=== PATIENT | female | born 1975 | race Caucasian/White ===

== ENCOUNTER 2022-09-20 12:48 | Emergency (ER) | payer BC, SELFPAY ==
[2022-09-20 12:52] VITALS: BP 176/96; PULSE 78; RESP 18; TEMP 36.7; O2SAT 100
[2022-09-20 16:32] VITALS: BP 155/99; PULSE 75; RESP 18; O2SAT 99
--- NOTE | 2022-09-20 18:43 | PC.NURSE ---
no answer at triage
--- NOTE | 2022-09-20 21:05 | PC.NURSE ---
Patient called to place into exam room without response. Assumed to have left the ER without being seen by a provider after triage.
== END 2022-09-20 21:12 | disposition left against medical advice (07) ==
PROVIDERS: PCP Internal Medicine
DX: R60.0 Localized edema (principal)
CPT/HCPCS: 99199

== ENCOUNTER 2023-11-30 20:52 | Emergency (ER) | payer OTHER, SELFPAY ==
[2023-11-30 20:55] VITALS: BP 181/80; PULSE 81; RESP 20; TEMP 35.9; O2SAT 100
--- NOTE | 2023-11-30 21:34 | ED.GENADULT ---
HPI - General Adult General Chief complaint: Extremity Injury, Lower Stated complaint: leg pain Time Seen by Provider: 11/30/23 20:54 Source: patient Mode of arrival: ambulatory Limitations: no limitations History of Present Illness HPI narrative: this is a 48-year-old female who presents to the ED with chief complaint of right leg pain x2 days. Patient reports that she has been On her feet all day at work and feels that the swelling is likely due to that. She does report swelling to both legs is chronic and seems unchanged. She states that her right calf, lateral knee has been hurting more, worse with specific movements. She also reports it is worse with weight-bearing. She feels it is because she is working between 60-70 hours a week right now. Denies any redness or warmth to the lower extremity. Denies numbness, weakness, fevers, chills, nausea, vomiting. No history of blood clot. Related Data Allergies Allergy/AdvReac Type Severity Reaction Status Date / Time No Known Allergies Allergy Unknown Verified 11/30/23 20:58 Exam Narrative: GENERAL: Well-appearing, well-nourished, and in no acute distress. HEAD: Normocephalic, atraumatic. EYES: PERRLA and EOMI. ENT: Nares clear, no rhinorrhea or epistaxis. Mucous membranes moist. Oropharynx without tonsillar hypertrophy exudate or other lesions. NECK: Supple. No adenopathy or masses. CHEST: No respiratory distress. Clear to auscultation. No wheezes rales or rhonchi HEART: Regular rate and rhythm. No murmur heard. Normal peripheral pulses. ABDOMEN: Soft, nontender, nondistended, normal active bowel sounds. MSK: Normal range of motion. Mild bilateral lower extremity swelling that is equal. No unilateral calf swelling redness or warmth. Mild tenderness along the right lateral knee and insertion of the hamstring /origin of the calf muscles. SKIN: Warm, dry, no rash. NEURO: Alert and oriented x3. No focal deficits. PSYCH: Normal mood and affect. Course Vital Signs Vital signs: Vital Signs Temperature 96.7 F L 11/30/23 20:55 Pulse Rate 81 11/30/23 20:55 Respiratory Rate 20 11/30/23 20:55 Blood Pressure 181/80 H 11/30/23 20:55 Pulse Oximetry 100 11/30/23 20:55 Oxygen Delivery Room Air 11/30/23 20:55 Temperature 96.7 F L 11/30/23 20:55 Pulse Rate 81 11/30/23 20:55 Respiratory Rate 20 11/30/23 20:55 Blood Pressure 181/80 H 11/30/23 20:55 Pulse Oximetry 100 11/30/23 20:55 Oxygen Delivery Room Air 11/30/23 20:55 Medical Decision Making MDM Narrative Medical decision making narrative: This is a 48-year-old female who presents to the ED with chief complaint of right lower leg pain for the past few days. Vitals show elevated blood pressure otherwise normal. Exam shows consistency with musculoskeletal strain. Low likelihood of DVT based on exam. Wells score -2. We discussed that the likelihood of DVT is very low with this score. No unilateral redness, warmth to indicate DVT on exam. offered ultrasound Doppler for definitive rule out but patient feels comfortable going home at this point and will return if anything worsens. Rx for naproxen 500 b.i.d. given. Patient will be discharged stable condition with return precautions given. she will f/u with PCP Balta' Criteria for DVT from [email or web address] on 12/01/2023 All calculations should be rechecked by clinician prior to use RESULT SUMMARY: -2 points Low risk group for DVT. ?Unlikely? according to Wells? DVT studies. INPUTS: Active cancer ?> 0 = No Bedridden recently >3 days or major surgery within 12 weeks ?> 0 = No Calf swelling >3 cm compared to the other leg ?> 0 = No Collateral (nonvaricose) superficial veins present ?> 0 = No Entire leg swollen ?> 0 = No Localized tenderness along the deep venous system ?> 0 = No Pitting edema, confined to symptomatic leg ?> 0 = No Paralysis, paresis, or recent plaster immobilization of the lower extremity ?> 0 = No Pr
== END 2023-11-30 23:05 | disposition home or self-care (01) ==
PROVIDERS: Emergency Provider Physician Assistant; PCP Internal Medicine
DX: R22.43 Localized swelling, mass and lump, lower limb, bilateral (principal); S86.919A Strain of unspecified muscle(s) and tendon(s) at lower leg level, unspecified leg, initial encounter
CPT/HCPCS: 99283

== ENCOUNTER 2023-12-05 12:59 | Emergency (ER) | payer OTHER, SELFPAY ==
--- NOTE | ~2023-12-05 | XR_ITS ---
XR knee RT 3V Ordering provider: Amanda Wan MD History: . LATERAL SIDE KNE PAIN X 1 WEEK . Comparison: None. FINDINGS: BONES: No acute fracture or dislocation. JOINT SPACES: Normal. SOFT TISSUES: Normal. IMPRESSION: No acute osseous abnormality right knee. Reviewed, dictated and finalized at location A.
--- NOTE | ~2023-12-05 | US_ITS ---
RIGHT LOWER EXTREMITY VENOUS ULTRASOUND Ordering provider: Amanda Wan MD History: . calf pain, swelling . Comparison: None. FINDINGS: --COMMON FEMORAL: Patent and free of thrombus. Normal compressibility, phasic flow and augmentation. --PROXIMAL SUPERFICIAL FEMORAL: Patent and free of thrombus. Normal compressibility, phasic flow and augmentation. --DISTAL SUPERFICIAL FEMORAL: Patent and free of thrombus. Normal compressibility, phasic flow and au gmentation. --POPLITEAL: Patent and free of thrombus. Normal compressibility, phasic flow and augmentation. --POSTERIOR TIBIAL: Patent and free of thrombus. Normal compressibility, phasic flow and augmentation . IMPRESSION: Negative right lower extremity venous US. No deep vein thrombosis. Reviewed, dictated and finalized at location A.
[2023-12-05 13:00] VITALS: BP 147/96; PULSE 71; RESP 15; TEMP 36.4; O2SAT 98
--- NOTE | 2023-12-05 14:45 | ED.EXTPRO ---
HPI - Extremity Problem General Chief complaint: Extremity Problem,Nontraumatic Stated complaint: right leg pain Time Seen by Provider: 12/05/23 14:36 History of Present Illness HPI Narrative: Patient is a 48-year-old obese female here with right leg pain. Patient states that the leg pain is been present for about 1 week. The pain initially began behind her right knee. She came into the emergency department to be evaluated approximately 5 days ago. She was offered ultrasound at that time, he had a basic evaluation and was discharged on naproxen for suspected muscle strain. She has been resting, elevating and taking said naproxen without improvement of her symptoms. She states that around 2:00 a.m. this morning the pain became suddenly worse. She notes that the pain is now shooting over the entirety of her posterior right leg into her hip as well as down into her foot. She denies any trauma. She notes significant calf pain and the worst location of her pain is in her calf and posterior to her right knee. She denies any skin changes, fever, chills. No prior history of PE or DVT. She takes no medications on a daily basis aside from the naproxen. She did attempt to contact her primary care doctor today regarding the pain in the 1st available appointment is on . Given the severity of her pain she came to the emergency department for re-evaluation. Related Data Allergies Allergy/AdvReac Type Severity Reaction Status Date / Time No Known Allergies Allergy Unknown Verified 12/05/23 14:51 Review of Systems Review of Systems: All systems reviewed & are unremarkable except as noted in HPI and below Exam Narrative: GENERAL: Well-appearing, well-nourished, and in no acute distress. CHEST: Clear to auscultation. No respiratory distress. HEART: Regular rate and rhythm. Normal peripheral pulses. ABDOMEN: Soft, nontender, nondistended. EXTREMITIES: Normal range of motion of right hip. Limited range of motion of right knee due to pain. Reproducible tenderness posterior to the right knee and into the right calf. No obvious swelling, no erythema. Strong DP pulse in the right foot and sensation is intact SKIN: Warm, dry, no rash. NEURO: No focal deficits. Alert and oriented x3. Course Course Emergency Course: Chart review performed. Patient here for leg pain. Triage vitals grossly normal. She appears to have been seen here in the ED on 11/30/23 for right leg pain. She refused doppler US and was diagnosed with musculoskeletal strain. Patient seen evaluated, nontoxic appearing, alert, oriented. She denies any chest pain or shortness of breath. She does have continued right leg pain which now involves the entire posterior of her right leg. Will do lower extremity Doppler to evaluate for possible DVT. She appears at good perfusion to this leg without any paresthesias or pallor, unlikely that pain is due to an arterial injury. Will additionally do x-ray given patient's body habitus to evaluate for possible occult knee injury versus arthritis which could be causing her pain. Tylenol ordered for pain. X-ray negative. Ultrasound negative for right lower extremity DVT. Toradol ordered for additional pain control. Patient evaluated, has had some pain relief. Will give her short course of [place] advised close follow-up primary care doctor, she has a pre-existing appointment this . The results of pertinent diagnostic studies and exam findings were discussed. The patient?s provisional diagnosis and plan of care were discussed with the patient and present family. The patient and/or present family expressed understanding of the diagnosis and plan. The nurse was instructed to provide written instructions and appropriate follow-up information. The patient understands their need and responsibility to obtain additional follow-up as instructed. The risks of medications administered and prescribed were discussed with the patient and family pre
[2023-12-05] MEDS: ACETAMINOPHEN 325 MG TABLET 650 MG PO (15:23)
[2023-12-05] MEDS: KETOROLAC 30 MG/ML VIAL (*BKC) 15 MG IM (16:33)
[2023-12-05 16:35] VITALS: BP 148/91; PULSE 62; RESP 18; O2SAT 100
== END 2023-12-05 17:33 | disposition home or self-care (01) ==
PROVIDERS: Emergency Provider Student in an Organized Health Care Education/Training Program; PCP Internal Medicine
DX: M79.604 Pain in right leg (principal)
CPT/HCPCS: 73562; 93971; 96372; 99284; A9270; J1885

== ENCOUNTER 2024-12-19 16:53 | Emergency (ER) | payer OTHER, SELFPAY ==
--- NOTE | ~2024-12-19 | US_ITS ---
EXAMINATION: US venous doppler [facility] DATE: 12/19/2024 19:29 INDICATION: Pain and swelling TECHNIQUE: Grayscale ultrasound images without and with compression and Doppler ultrasound images of the left lower extremity veins were obtained. COMPARISON: None. FINDINGS: The visualized portions of left common femoral vein, profunda (deep) femoral vein, femoral vein, popl iteal vein, peroneal veins, posterior tibial veins, and greater saphenous vein outflow are patent. IMPRESSION: 1. No deep venous thrombosis. Reviewed, dictated and finalized at location A.
[2024-12-19 17:13] VITALS: BP 155/106; PULSE 120; RESP 20; TEMP 36.6; O2SAT 97
[2024-12-19 18:37] VITALS: BP 136/84; PULSE 88; RESP 16; TEMP 36.6; O2SAT 98
[2024-12-19 19:22] LABS: Basophils Absolute Auto 0.1 K/mm3 (0.0-0.1); Basophils Percent Auto 0.8 % (0.2-1.2); Eosinophils Absolute Auto 0.6 K/mm3 (0-0.3); Eosinophils Percent Auto 5.9 % (0-4.4); Hematocrit 43.2 % (37.0-47.0); Hemoglobin 13.8 g/dL (12.0-15.0); Immature Granulocyte Absolute 0.03 K/mm3 (0.00-0.031); Immature Granulocyte Percent A 0.3 % (0-0.5); Lymphocytes Absolute Auto 2.66 K/mm3 (0.9-3.2); Lymphocytes Percent Auto 28.5 % (18.3-44.2); Mean Corpuscular HGB Conc 31.9 g/dl (32-36); Mean Corpuscular Hemoglobin 30.6 pg (26-34); Mean Corpuscular Volume 95.8 fl (80-100); Monocytes Absolute Auto 0.6 K/mm3 (0.1-0.6); Monocytes Percent Auto 6.8 % (2.6-8.5); Neutrophils Absolute Auto 5.4 K/mm3 (1.3-6.7); Neutrophils Percent Auto 57.7 % (45.5-73.1); Platelet Count Result 190 k/mm3 (150-375); Red Blood Count 4.51 M/mm3 (4.2-5.4); Red Cell Distribution Width 13.5 % (11.5-14.5); White Blood Count 9.3 K/mm3 (4.5-10.0)
[2024-12-19 19:23] LABS: Anion Gap 7 mmol/L (4-12); Blood Urea Nitrogen 15 mg/dL (7-17); Calcium 9.1 mg/dL (8.4-10.2); Carbon Dioxide 26 mmol/L (22-30); Chloride 103 mmol/L (98-107); Estimated CRCL calculation 100 ml/min; Estimated Glomerular Filt Rate > 60; Glucose 111 mg/dL (65-110); Sodium 136 mmol/L (137-145)
--- NOTE | 2024-12-19 19:32 | ED_ITS ---
HPI - Extremity Problem General Chief complaint: Extremity Problem,Nontraumatic Stated complaint: left leg swelling Time Seen by Provider: 12/19/24 18:46 Source: patient Mode of arrival: ambulatory Limitations: no limitations History of Present Illness HPI Narrative: Patient presents with left leg swelling and pain over the past 3 days. 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 She has been trialing 1 500 mg tablet of Tylenol per day. Typically when this occurs she is able to elevate her feet/legs briefly and this will help. She reports that standing and walking particularly exacerbate her symptoms. However, she notes that she is even having symptoms while lying in bed and has tried to prop the leg with pillow under it or between her legs and she even has a bed that has a leg lift. Not on control/hormones. No recent travel. No prior DVT/PE. No diagnosis heart failure. Denies any fevers, chills paresthesias, shortness of breath. No back pain associated. The pain is throughout the medial aspect of her left leg proximally distally into the knee joint although she denies any distinct knee pain. Primary care physician is Todd. Related Data Allergies Allergy/AdvReac Type Severity Reaction Status Date / Time No Known Allergies Allergy Unknown Verified 12/05/23 14:51 [facility] Past Medical History Medical History Morbid obesity Family History Family History Mother Paraplegia Social History Social History Living arrangements: with family Additional living arrangements comments: 4 children Occupation/Education: occupation Additional occupation/education comments: 2 jobs Exam 2 Narrative: GENERAL: Well-appearing, well-nourished, and in no acute distress. HEAD: Normocephalic, atraumatic. EYES: Non injected, non icteric ENT: Nares clear, no rhinorrhea or epistaxis. Gross auditory acuity intact. NECK: Supple. No meningismus. CHEST: Speaking in full sentences. No respiratory distress. HEART: Regular rate and rhythm at the time of exam . ABDOMEN: Morbid obeisty but Soft EXTREMITIES: Normal range of motion. 1+ Left leg pedal edema but otherwise not proximally. No edema R leg. Strong L DP pulse. SKIN: Warm, dry. Small localized wound with well circumscribed erythema at the borders at right medial leg but otherwise not spreading or following area of pain. NEURO: No focal deficits. Alert and oriented. Answering questions. Following commands. Normal speech without aphasia or dysarthria. Sensation intact throughout bilateral lower extremities. PSYCH: Normal mood and affect. Course Vital Signs Vital signs: Vital Signs Temperature 97.9 F 12/19/24 17:13 Pulse Rate 120 H 12/19/24 17:13 Respiratory Rate 20 12/19/24 17:13 Blood Pressure 155/106 H 12/19/24 17:13 Pulse Oximetry 97 12/19/24 17:13 Oxygen Delivery Room Air 12/19/24 17:13 Temperature 97.8 F 12/19/24 18:37 Pulse Rate 88 12/19/24 18:37 Respiratory Rate 16 12/19/24 18:37 Blood Pressure 136/84 12/19/24 18:37 Pulse Oximetry 98 12/19/24 18:37 Oxygen Delivery Room Air 12/19/24 18:37 MDM - Extremity (Nontraumatic) MDM Narrative Medical decision making narrative: Patient presents with left leg pain and swelling of the past 3 days duration. This exists the medial aspect distal tib/fib (i.e. above and below knee joint though without distinct knee pain). In the emergency department she is afebrile vital signs notable for hypertension and tachycardia with resolution on repeat (no interval intervention). Although no superficial evidence of thrombophlebitis, the distribution pain does follow this course. She also somewhat describes claudication symptoms previously although has strong palpable DP pulse, less suspicion for acute arterial ischemia. The fact that now the pain persists even at rest makes current claudication less likely though concern for underlying peripheral vascular disease remains. Patient is only been taking 1 500 mg tablet of Tylenol per day. We discussed appropriate therapeutic pain dosing of analgesic medications given her age/weight. She verifies understanding. Advised she trial this. In particular, noted that NSAIDs would be first-line for thrombophlebitis and that aspirin is recommended for PVD. Regardless, advise that she follow-up with her primary care physician if not improving for further workup. Verified understanding. Stable for discharge. Differential Diagnosis Differential diagnosis: Likely herpes zoster, cellulitis, superficial thrombophlebitis, lower extremity edema, deep vein thrombosis of lower extremity and other (peripheral vascular disease; considered arterial ischemia) Lab Data Attestation: I reviewed the patient's lab results. 12/19/24 19:08 12/19/24 19:08 Labs: Lab Results 12/19/24 Range/Units 19:08 WBC 9.3 (4.5-10.0) K/mm3 RBC 4.51 (4.2-5.4) M/mm3 Hgb 13.8 (12.0-15.0) g/dL Hct 43.2 (37.0-47.0) % MCV 95.8 (80-100) fl MCH 30.6 (26-34) pg MCHC 31.9 L (32-36) g/dl RDW 13.5 (11.5-14.5) % Plt Count 190 (150-375) k/mm3 MPV 11.0 H (7.4-10.4) fl Immature Gran % (Auto) 0.3 (0-0.5) % Neut % (Auto) 57.7 (45.5-73.1) % Lymph % (Auto) 28.5 (18.3-44.2) % [place] % (Auto) 6.8 (2.6-8.5) % Eos % (Auto) 5.9 H (0-4.4) % Baso % (Auto) 0.8 (0.2-1.2) % Lymph # (Auto) 2.66 (0.9-3.2) K/mm3 [place] # (Auto) 0.6 (0.1-0.6) K/mm3 Eos # (Auto) 0.6 H (0-0.3) K/mm3 Baso # (Auto) 0.1 (0.0-0.1) K/mm3 Abs Immat Gran (auto) 0.03 (0.00-0.031) K/mm3 Absolute Neuts (auto) 5.4 (1.3-6.7) K/mm3 Absolute Nucleated RBC 0.000 (0.0-0.012) K/mm3 Nucleated RBC % 0.0 (0.0-0.2) % PT 13.6 (11.1-14.7) Seconds INR 1.0 APTT 27.1 (22.3-36.8) Seconds Sodium 136 L (137-145) mmol/L Potassium 4.0 (3.4-5.0) mmol/L Chloride 103 (98-107) mmol/L Carbon Dioxide 26 (22-30) mmol/L Anion Gap 7 (4-12) mmol/L BUN 15 (7-17) mg/dL Creatinine 0.79 (0.7-1.0) mg/dL Estim Creat Clear Calc 100 ml/min Estimated GFR > 60 (59 - ) Glucose 111 H (65-110) mg/dL Calcium 9.1 (8.4-10.2) mg/dL Imaging Data Radiologist's impression: Impressions Venous Doppler Study 12/19/24 19:39 IMPRESSION: 1. No deep venous thrombosis. Discharge Plan Discharge Clinical Impression: Pain in medial left lower extremity Patient Disposition: Home Condition: Stable Instructions: Antibiotic Form, Superficial Thrombophlebitis (ED), Peripheral Vascular Disease (ED), Leg Pain (ED) Additional Instructions: No blood clot in your leg which would be a very concerning diagnosis. The exact cause of your pain is unclear but might represent claudication due to peripheral vascular disease versus superficial thrombophlebitis. I encourage you to read about these diagnoses. As we discussed, Acetaminophen/Tylenol (maximum 4000 mg per day) is safe to take with NSAIDs (ibuprofen/Motrin) for pain relief. Follow-up with your primary care physician. Return to the ED with new/worsening symptoms. Patient Language: Israeli Prescriptions: New ibuprofen 600 mg tablet 600 mg PO TID PRN (Reason: pain) Qty: 30 0RF acetaminophen 500 mg capsule 1,000 mg PO Q6H PRN (Reason: pain) Qty: 30 0RF aspirin 81 mg tablet 81 mg PO DAILY Qty: 30 0RF No Action naproxen 500 mg tablet 500 mg PO BID PRN (Reason: pain) Qty: 30 0RF hydrocodone-acetaminophen 5-325 mg tablet 1 tablet PO Q8H PRN (Reason: pain) Qty: 10 0RF Follow-up/Referrals: Todd,James Painter MD [Primary Care Provider] - Stand Alone Forms: Work/School Release IP Time of Disposition: 20:02
[2024-12-19 19:34] LABS: Prothrombin Time 13.6 Seconds (11.1-14.7)
[2024-12-19 19:35] LABS: Partial Thromboplastin Time 27.1 Seconds (22.3-36.8)
[2024-12-19] MEDS: KETOROLAC 30 MG/ML VIAL (*BKC) IM (20:14)
[2024-12-19] MEDS: HYDROcodone/acetaminophen (*CRX) 5-325 MG TABLET 1 TAB PO (20:14)
== END 2024-12-19 20:48 | disposition home or self-care (01) ==
PROVIDERS: Emergency Provider Student in an Organized Health Care Education/Training Program; PCP Internal Medicine
DX: M79.605 Pain in left leg (principal); E66.01 Morbid (severe) obesity due to excess calories; Z68.43 Body mass index [BMI] 50.0-59.9, adult
CPT/HCPCS: 36415; 80048; 85025; 85610; 85730; 93971; 96372; 99284; A9270; J1885